=== PATIENT | female | born 1970 | race Two or more races ===

== ENCOUNTER 2023-05-01 03:58 | Day surgery (SDC) | payer OTHER ==
[2023-04-24 14:32] VITALS: BMI 30.5
[2023-05-01] MEDS ORDERED: TRANEXAMIC ACID 1000 MG/10 ML VIAL IVPUSH ONE (07:15)
[2023-05-01] MEDS ORDERED: GABAPENTIN 300 MG CAPSULE PO ONE (07:15)
[2023-05-01] MEDS ORDERED: PHENAZOPYRIDINE HCL 100 MG TABLET (FP) PO ONE (07:15)
[2023-05-01] MEDS ORDERED: ACETAMINOPHEN 1000 MG/100 ML BAG IVPB ONE (07:15)
[2023-05-01] MEDS ORDERED: CEFAZOLIN 2 GM in DEXTROSE 5%-WATER - 100 ML IVPB ONE (07:15)
[2023-05-01] MEDS ORDERED: ceFAZolin SODIUM 1 GM VIAL ONE ×2 (07:28→08:47)
[2023-05-01] MEDS ORDERED: ONDANSETRON 4 MG/2 ML VIAL IVPUSH PRN ×2 (08:33→11:42)
[2023-05-01] MEDS ORDERED: PROMETHAZINE HCL 25 MG/1 ML VIAL IVPB PRN (08:33)
[2023-05-01] MEDS ORDERED: ROCURONIUM BROMIDE 50 MG/5 ML SYRINGE ONE (08:45)
[2023-05-01] MEDS ORDERED: PROPOFOL 20 ML ONE ×2 (08:45→10:47)
[2023-05-01] MEDS ORDERED: LACTATED RINGERS SOLUTION 1,000 ML IV SCH (08:45)
[2023-05-01] MEDS ORDERED: MIDAZOLAM HCL 2 MG/2 ML SINGLE DOSE VIAL ONE (08:45)
[2023-05-01] MEDS ORDERED: LIDOCAINE HCL/PF 2% SDV 5ML VIAL ONE (08:46)
[2023-05-01] MEDS ORDERED: SODIUM CHLORIDE 0.9% P/F 10 ML VIAL IJ ONE (08:47)
[2023-05-01 08:48] LABS: EPI CELLS >36 /uL (0-25.1); HYALINE CASTS 1 /uL (0-3.1); PH,URINE 6.5 (5.0-8.0); URINE APPEARANCE CLEAR; URINE BACTERIA 1561 /uL (0-1359); URINE BILIRUBIN NEGATIVE (NEGATIVE); URINE COLOR YELLOW; URINE GLUCOSE (UA) NEGATIVE (NEGATIVE); URINE KETONE NEGATIVE (NEGATIVE); URINE LEUK ESTERASE NEGATIVE (NEGATIVE); URINE NITRITE NEGATIVE (NEGATIVE); URINE PROTEIN TRACE (NEGATIVE); URINE RBC 2016 /uL (0-23.9); URINE UROBILINOGEN 0.2 mg/dL (0.2-1.0); URINE WBC 28 /uL (0-25.8)
[2023-05-01] MEDS ORDERED: ceFAZolin SODIUM 1 GM VIAL IVPB ONE (09:09)
[2023-05-01] MEDS ORDERED: DEXAMETHASONE SOD PHOSPHATE 4 MG/1 ML VIAL ONE (09:15)
[2023-05-01] MEDS ORDERED: METOCLOPRAMIDE HCL INJECTION 10 MG/2 ML VIAL ONE (09:15)
[2023-05-01] MEDS ORDERED: SUGAMMADEX SODIUM 200 MG/2 ML VIAL ONE (10:36)
[2023-05-01] MEDS ORDERED: KETOROLAC TROMETHAMINE 30 MG/1 ML VIAL ONE (10:49)
[2023-05-01] MEDS ORDERED: oxyCODONE HCL 5 MG TABLET PO PRN ×2 (11:42)
[2023-05-01] MEDS ORDERED: BISACODYL 5 MG TABLET.DR (FP) PO PRN (11:42)
[2023-05-01] MEDS ORDERED: DOCUSATE SODIUM 100 MG CAPSULE (FP) PO PRN (11:42)
[2023-05-01] MEDS ORDERED: SIMETHICONE 80 MG TAB.CHEW (FP) PO PRN (11:42)
[2023-05-01] MEDS ORDERED: IBUPROFEN 800 MG/8 ML IJ IVPB SCH (11:45)
[2023-05-01 14:40] VITALS: RESP 18
[2023-05-01] MEDS: CEFAZOLIN 1 GM in DEXTROSE 5%-WATER - 50 ML IVPB SCH (16:15)
[2023-05-01] MEDS: ACETAMINOPHEN 1000 MG/100 ML BAG IVPB SCH ×2 (17:02→23:23)
[2023-05-01] MEDS: IBUPROFEN 800 MG/8 ML IJ IVPB SCH (18:28)
[2023-05-01 19:20] LABS: HEMATOCRIT 33.8 % (32.4-45.2); MCH 26.1 pg (25.7-33.7); MCHC 32.4 g/dl (32.0-36.0); MEAN CELL VOLUME 80.6 fl (80-96); MEAN PLT VOLUME 8.4 fl (7.5-11.1); PLATELET COUNT 350 10^3/uL (134-434); RDW 15.3 % (11.6-15.6); WHITE BLOOD COUNT 9.9 K/mm3 (4.0-10.0)
[2023-05-01 19:39] LABS: POTASSIUM 4.2 mmol/L (3.5-5.1)
[2023-05-01 19:40] LABS: CALCIUM 8.8 mg/dL (8.5-10.1)
[2023-05-01 19:41] LABS: BLOOD UREA NITROGEN 8.9 mg/dL (7-18)
[2023-05-01 19:44] LABS: CREATININE 0.9 mg/dL (0.55-1.3)
[2023-05-02] MEDS: CEFAZOLIN 1 GM in DEXTROSE 5%-WATER - 50 ML IVPB SCH (02:30)
[2023-05-02] MEDS: IBUPROFEN 800 MG/8 ML IJ IVPB SCH ×2 (03:00→09:45)
[2023-05-02] MEDS: ACETAMINOPHEN 1000 MG/100 ML BAG IVPB SCH ×2 (05:03→11:43)
[2023-05-02 07:07] LABS: HEMATOCRIT 30.4 % (32.4-45.2); HEMOGLOBIN 9.7 GM/dL (10.7-15.3); MCH 25.8 pg (25.7-33.7); MCHC 31.7 g/dl (32.0-36.0); MEAN CELL VOLUME 81.4 fl (80-96); MEAN PLT VOLUME 8.2 fl (7.5-11.1); PLATELET COUNT 298 10^3/uL (134-434); RBC 3.74 M/mm3 (3.60-5.2); RDW 15.4 % (11.6-15.6); WHITE BLOOD COUNT 9.6 K/mm3 (4.0-10.0)
[2023-05-02 07:23] LABS: POTASSIUM 3.4 mmol/L (3.5-5.1)
[2023-05-02 07:26] LABS: BLOOD UREA NITROGEN 7.8 mg/dL (7-18); CALCIUM 8.1 mg/dL (8.5-10.1)
[2023-05-02 07:30] LABS: CREATININE 0.7 mg/dL (0.55-1.3)
[2023-05-02] MEDS ORDERED: ENOXAPARIN NA (PORCINE) 40 MG/0.4 ML DISP.SYRIN SQ SCH (10:00)
[2023-05-02 10:04] VITALS: BP 107/62; PULSE 75; TEMP 98.2
[2023-05-02] MEDS ORDERED: POTASSIUM CHLORIDE TABS 10 MEQ TABLET.ER (FP) PO SCH (10:15)
[2023-05-02] MEDS ORDERED: ACETAMINOPHEN 325 MG TABLET (FP) PO PRN (10:45)
[2023-05-02] MEDS ORDERED: IBUPROFEN 600 MG TABLET (FP) PO PRN ×2 (11:00→16:45)
[2023-05-02] MEDS ORDERED: ACETAMINOPHEN 500 MG TABLET (FP) PO PRN (11:00)
== END 2023-05-02 12:50 | disposition home or self-care (01) ==
LOC: JASUSAT 03:58 → J3W 13:53 → JASUSAT 05-02 12:50
PROVIDERS: ATTEND Obstetrics & Gynecology
PROC: 8E0W4CZ Robotic Assisted Procedure of Trunk Region, Percutaneous Endoscopic Approach (ICD-10-PCS; 2023-05-01)
PROC: 0UT9FZZ Resection of Uterus, Via Natural or Artificial Opening With Percutaneous Endoscopic Assistance (ICD-10-PCS; principal; 2023-05-01 09:00)
PROC: 0UT5FZZ Resection of Right Fallopian Tube, Via Natural or Artificial Opening With Percutaneous Endoscopic Assistance (ICD-10-PCS; 2023-05-01 09:00)
DX: D25.9 Leiomyoma of uterus, unspecified (principal); N70.91 Salpingitis, unspecified; N83.12 Corpus luteum cyst of left ovary
CPT/HCPCS: 58554; S2900; 36415; 80048; 81003; 84703; 85027; 86850; 86900; 86901; 88305-TC; 88307-TC; 94010; 94760; J0131